=== PATIENT | female | born 1965 | race African-American/Black ===

== ENCOUNTER 2016-03-04 20:45 | Emergency (ER) | payer MEDICARE ==
[~2016-03-04] VITALS: Ht 157.5 cm; Wt 77.1 kg
[2016-03-04 20:54] VITALS: BP 142/80
[2016-03-04] MEDS ORDERED: DiphenhydrAMINE 50mg/ml Inj IVP ONE (21:00)
[2016-03-04] MEDS ORDERED: Famotidine 20 MG/ 2ML VIAL IVP ONE (21:00)
[2016-03-04 22:07] VITALS: BP 136/80
[2016-03-04] MEDS ORDERED: PREDNISONE20 MG ORAL (22:09)
[2016-03-04] MEDS ORDERED: EPIPEN 2-P0.3 MG/0.3 IM (22:09)
[2016-03-04] MEDS ORDERED: DIPHENHYDRAMINE25 M1 ORAL (22:09)
[2016-03-04 22:26] VITALS: BP 136/80
--- NOTE | 2016-03-06 19:46 | Emergency Room Report ---
History of Present Illness General Chief Complaint: Allergic Reaction Source: Patient Present Illness HPI 50 -year-old female presents to ED for allergic reaction. Per EMS patient was eating at a restaurant today when her throat started started to get itchy and she noticed hives all over her body. She states she has multiple food allergies and believes that food was cross contaminated. Patient had her EpiPen with her I used her EpiPen immediately. Upon arrival patient states she is feeling better. Denies any throat swelling or tongue swelling. Does note some itchiness. Denies any shortness of breath or wheezing. No aggravating or relieving factors. Denies any other associated symptoms Allergies: Coded Allergies: ACETAMINOPHEN (Verified Allergy, Unknown, 03/04/16) CRAB (Verified Allergy, Unknown, 03/04/16) Clam (Verified Allergy, Unknown, 03/04/16) GADOBENIC ACID (Verified Allergy, Unknown, 03/04/16) IRON (Verified Allergy, Unknown, 03/04/16) KETOROLAC (Verified Allergy, Unknown, 03/04/16) OXYCODONE (Verified Allergy, Unknown, 03/04/16) SHELLFISH DERIVED (Verified Allergy, Unknown, 03/04/16) Uncoded Allergies: Contrast (Allergy, Unknown, 03/04/16) Patient History Past Medical History: asthma Past Surgical History: none Pertinent Family History: none Social History: Denies: alcohol use, drug use, smoking Now: No Immunizations: UTD Reviewed Nursing Documentation: PMH: Agreed, PSxH: Agreed Nursing Documentation-PMH Past Medical History: No History, Except For Hx Asthma: Yes Hx Neurological Problems: No - Ankylospondylosis Review of Systems All Other Systems: negative except mentioned in HPI Physical Exam Vital Signs Date Time Temp Pulse Resp B/P Pulse Ox O2 Delivery O2 Flow Rate FiO2 03/04/16 20:46 98.1 102 20 142/80 100 Room Air Sp02 EP Interpretation: reviewed, normal General Appearance: no apparent distress, alert, GCS 15, non-toxic Head: normocephalic, atraumatic Eyes: bilateral eye PERRL, bilateral eye normal inspection ENT: hearing grossly normal, normal pharynx, no angioedema, normal voice Neck: full range of motion, supple/symm/no masses Respiratory: chest non-tender, lungs clear, normal breath sounds, speaking full sentences Cardiovascular #1: regular rate, rhythm, no edema Cardiovascular #2: 2+ carotid (R), 2+ carotid (L), 2+ radial (R), 2+ radial (L) , 2+ dorsalis pedis (R), 2+ dorsalis pedis (L) Gastrointestinal: normal bowel sounds, non tender, soft, non-distended, no guarding, no rebound Rectal: deferred Genitourinary: normal inspection, no CVA tenderness Musculoskeletal: back normal, gait/station normal, normal range of motion, non- tender Neurologic: alert, oriented x3, responsive, motor strength/tone normal, sensory intact, speech normal Psychiatric: judgement/insight normal, memory normal, mood/affect normal, no suicidal/homicidal ideation Reflexes: 3+ bicep (R), 3+ bicep (L), 3+ tricep (R), 3+ tricep (L), 3+ knee (R) , 3+ knee (L) Skin: warm/dry, well hydrated, other - urticaria Lymphatic: no adenopathy Medical Decision Making Diagnostic Impression: Primary Impression: Allergic reaction Qualified Codes: T78.40XA - Allergy, unspecified, initial encounter ER Course Hospital Course 50-year-old female presents to ED complaining of tongue swelling and throat tightness, urticarial rash after eating food. Took EpiPen and prednisone prior to arrival Differential diagnoses include: allergic reaction, angioedema Clinical course Patient placed on stretcher. 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 After initial history and physical, I ordered IV fluids, Zantac, Benadryl Upon reassessment patient states he feels better. Given improvement of symptoms , lack of lip swelling, presence of urticarial rash, my suspicion for angioedema is low. Therefore I believe patient can be safely discharged to home. i. I feel this is a highly complex case requiring extensive working including EKG/Rhythm strip, Xray/CT/US, Blood/urine lab work, repeat exams while in ED, and administration of strong opiates/narcotics for pain control, admission to hospital or close patient follow up. Diagnosis - allergic reaction Stable and discharged to home with prescriptions for EpiPen, prednisone, Benadryl. Followup with PMD. Return to ED if symptoms recur or worsen Last Vital Signs Date Time Temp Pulse Resp B/P Pulse Ox O2 Delivery O2 Flow Rate FiO2 03/04/16 22:26 98.2 100 18 136/80 100 Room Air Status: improved Disposition: HOME, SELF-CARE Condition: Stable Scripts Diphenhydramine Hcl* (DIPHENHYDRAMINE HCL*) 25 Mg Capsule 25 MG ORAL Q6H Y for Itching, #30 CAP 0 Refills Prov: JASVIR ARVIZU M.D. 03/04/16 Prednisone* (PREDNISONE*) 20 Mg Tablet 60 MG ORAL DAILY for 5 Days, TAB Prov: JASVIR ARVIZU M.D. 03/04/16 Epinephrine (Epipen 2-Jamil) 0.3 Mg/0.3 Ml Auto.injct 0.3 MG IM ONCE, #1 EA Prov: JASVIR ARVIZU M.D. 03/04/16 Referrals: NON PHYSICIAN (PCP) Patient Instructions: Anaphylactic Reaction, [id number] JASVIR ARVIZU M.D. Mar 06, 2016 19:46
== END 2016-03-04 22:26 | disposition home or self-care (01) ==
LOC: EDBD 20:45 → EMR 21:10
DX: T78.40XA Allergy, unspecified, initial encounter (principal); Z88.6 Allergy status to analgesic agent; Z88.5 Allergy status to narcotic agent; Z91.013 Allergy to seafood; Z91.018 Allergy to other foods; J45.909 Unspecified asthma, uncomplicated
CPT/HCPCS: 96361; 96374; 96375; 99284; J1200; J7040; S0028